=== PATIENT | male | born 2000 | race African-American/Black ===

== ENCOUNTER 2022-01-21 15:12 | Emergency (ER) | payer OTHER ==
[~2022-01-21] VITALS: Ht 177.8 cm; Wt 65.9 kg
[2022-01-21] MEDS ORDERED: NAPR-1025 PO (20:27)
[2022-01-21 20:37] VITALS: BP 129/85
== END 2022-01-21 21:10 | disposition home or self-care (01) ==
LOC: EMS 15:14
DX: S90.31XA Contusion of right foot, initial encounter (principal); W20.8XXA Other cause of strike by thrown, projected or falling object, initial encounter; Y93.89 Activity, other specified; Y92.89 Other specified places as the place of occurrence of the external cause; Y99.0 Civilian activity done for income or pay
CPT/HCPCS: 99283; 99284